=== PATIENT | male | born 1950 | race Caucasian/White ===

== ENCOUNTER → 2017-09-20 | Outpatient (CLI) | payer OTHER, MEDICARE ==
[~2017-09-20] MED LIST: GADOBUTROL 10 ML VIAL IVP ONE
== END ==
LOC: FIMAGING 12:54
PROVIDERS: ATTEND Psychiatry & Neurology Neurology
DX: G35 Multiple sclerosis (principal); G31.9 Degenerative disease of nervous system, unspecified; J32.9 Chronic sinusitis, unspecified
CPT/HCPCS: 70553; A9585